=== PATIENT | male | born 1990 | race African-American/Black ===

== ENCOUNTER 2021-12-23 01:35 | Emergency (ER) | payer OTHER ==
[~2021-12-23] VITALS: Ht 167.6 cm; Wt 99.8 kg
[2021-12-23 01:50] VITALS: BP 134/76; TEMP 98.6
[2021-12-23 02:04] LABS: PLATELET COUNT 281 K/uL (142-355)
[2021-12-23 02:08] LABS: POTASSIUM 3.1 mmol/L (3.6-5.2)
[2021-12-23 02:27] LABS: PARTIAL THROMBOPLASTIN TIME 24.6 SECONDS (24.5-33.6)
== END 2021-12-23 08:57 | disposition home or self-care (01) ==
LOC: ED 01:35
PROVIDERS: Family Medicine
DX: S02.2XXA Fracture of nasal bones, initial encounter for closed fracture (principal); F10.129 Alcohol abuse with intoxication, unspecified; Y90.7 Blood alcohol level of 200-239 mg/100 ml; S00.511A Abrasion of lip, initial encounter; S01.511A Laceration without foreign body of lip, initial encounter; Y00.XXXA Assault by blunt object, initial encounter; Y92.29 Other specified public building as the place of occurrence of the external cause
CPT/HCPCS: 80053; 80307; 80320; 82550; 84484; 85027; 85610; 85730; 90471; 90715; 93005; 96361; 96365; 96368; 99284; J0696; J3411; J3475; J3490

== ENCOUNTER 2022-01-01 15:54 | Emergency (ER) | payer OTHER ==
[~2022-01-01] VITALS: Ht 167.6 cm; Wt 75.7 kg
[2022-01-01 16:19] VITALS: BP 142/85; TEMP 97.4
== END 2022-01-01 16:40 | disposition home or self-care (01) ==
LOC: EDBD 15:54 → ED 15:54
DX: S02.2XXD Fracture of nasal bones, subsequent encounter for fracture with routine healing (principal); Y00.XXXD Assault by blunt object, subsequent encounter; Y92.29 Other specified public building as the place of occurrence of the external cause
CPT/HCPCS: 99281